=== PATIENT | male | born 1940 | race Caucasian/White ===

== ENCOUNTER 2024-01-24 07:42 | Emergency (ER) | payer OTHER ==
[~2024-01-24] VITALS: Ht 180.3 cm; Wt 68.0 kg
[2024-01-24] MEDS ORDERED: LORazepam 2 MG/ML VIAL ONE (08:04)
[2024-01-24 08:18] LABS: BASOPHILS % (AUTO) 0.1 % (0.0-2.0); EOSINOPHILS # (AUTO) 0.1 K/uL (0-0.4); EOSINOPHILS % (AUTO) 0.6 % (0.0-4.0); HEMATOCRIT 33.4 % (36-52); LYMPHOCYTES # (AUTO) 1.1 K/uL (2.0-11.5); LYMPHOCYTES % (AUTO) 12.6 % (20.5-51.1); MEAN CORPUSCULAR HEMOGLOBIN 28 pg (27-31); MEAN CORPUSCULAR HGB CONC 33 g/dL (33-37); MEAN CORPUSCULAR VOLUME 86.6 fL (80-94); MONOCYTES # (AUTO) 0.7 K/uL (0.8-1.0); MONOCYTES % (AUTO) 7.9 % (1.7-9.3); NEUTROPHILS # (AUTO) 6.8 K/uL (1.8-7.7); NEUTROPHILS % (AUTO) 78.8 % (42.2-75.2); PLATELET COUNT (AUTO) 197 K/uL (140-450); RED BLOOD CELL COUNT(AUTO) 3.86 MIL/uL (4.20-6.10); RED CELL DISTRIBUTION WIDTH 16.6 % (11.6-13.7); WHITE BLOOD COUNT (AUTO) 8.6 K/uL (4.8-10.8)
[2024-01-24 08:26] LABS: ANION GAP 11.7 (8-16); CALCIUM 8.6 mg/dL (8.5-10.1); CARBON DIOXIDE 30.4 mmol/L (21-32); CHLORIDE 99 mmol/L (98-107); CREATININE 2.2 mg/dL (0.6-1.3); GLUCOSE 187 mg/dL (74-106); POTASSIUM 4.1 mmol/L (3.5-5.1); SODIUM SERUM 137 mmol/L (136-145); UREA NITROGEN, BLOOD 56 mg/dL (7-18)
[2024-01-24 08:36] LABS: ALANINE AMINOTRANSFERASE 10 U/L (12-78); ALBUMIN 2.1 g/dL (3.4-5.0); ALKALINE PHOSPHATASE 95 U/L (50-136); ASPARTATE AMINOTRANSFERASE 18 U/L (15-37); BILIRUBIN,DIRECT 0.2 mg/dL (0.0-0.3); TOTAL BILIRUBIN 0.5 mg/dL (0.0-1.0); TOTAL PROTEIN, SERUM 8.1 g/dL (6.4-8.2)
[2024-01-24 08:38] LABS: LACTIC ACID 3.1 mmol/L (0.4-2.0)
[2024-01-24 08:39] LABS: FLU A ANTIGEN negative (NEGATIVE); FLU B ANTIGEN negative (NEGATIVE)
[2024-01-24 08:45] VITALS: BP 93/66; PULSE 69; RESP 12; TEMP 96.1; O2SAT 95
[2024-01-24 08:56] LABS: INR 1.24 (0.8-1.2); PARTIAL THROMBOPLASTIN TIME 26.1 secs (22-35.6); PROTHROMBIN TIME 12.9 secs (10.8-13.4)
[2024-01-24] MEDS: LORazepam 2 MG/ML VIAL IVP ONE (09:29)
[2024-01-24] MEDS: NACL 0.9% 1,000 ML IV ONE (09:29)
[2024-01-24 09:35] LABS: BILIRUBIN,URINE NEGATIVE (NEGATIVE); BLOOD, URINE 3+ (NEGATIVE); COLOR,URINE YELLOW (YELLOW); LEUKOCYTE ESTERASE ,URINE 1+ (NEGATIVE); NITRITE, URINE NEGATIVE (NEGATIVE); PROTEIN,URINE NEGATIVE (NEGATIVE); UGLUCOSE NEGATIVE (NEGATIVE); UROBILINOGEN,URINE 0.2 EU/dL (0.2 - 1)
[2024-01-24] MEDS ORDERED: cefTRIAXone 1,000 MG VIAL ONE (09:39)
[2024-01-24 09:40] LABS: APPEARANCE,URINE SLIGHTLY CLOUDY (CLEAR)
[2024-01-24] MEDS: cefTRIAXone 1,000 MG in DEXT 5% MINI-BAG PLUS 50 ML IV ONE (09:49)
[2024-01-24 10:20] LABS: BACTERIA,URINE FEW /HPF (None Seen); SQUAMOUS EPITHELIAL CELL,UR 0-3 (FEW) /LPF (0-3 (FEW))
[2024-01-24] MEDS: DESMOPRESSIN 4 MCG/ML AMP IV ONE (10:59)
[2024-01-24 11:01] VITALS: BP 99/50; PULSE 63; RESP 16; O2SAT 98
== END 2024-01-24 11:03 | disposition short-term general hospital (02) ==
LOC: MED 07:42
DX: S06.300A Unspecified focal traumatic brain injury without loss of consciousness, initial encounter (principal); R56.9 Unspecified convulsions; Z20.822 Contact with and (suspected) exposure to COVID-19; I48.91 Unspecified atrial fibrillation; E11.9 Type 2 diabetes mellitus without complications; K21.9 Gastro-esophageal reflux disease without esophagitis; I10 Essential (primary) hypertension; Z87.448 Personal history of other diseases of urinary system; Z95.0 Presence of cardiac pacemaker; Z88.8 Allergy status to other drugs, medicaments and biological substances; X58.XXXA Exposure to other specified factors, initial encounter; Y92.89 Other specified places as the place of occurrence of the external cause; Y93.89 Activity, other specified; Y99.8 Other external cause status
CPT/HCPCS: 36415; 70450; 70496; 70498; 71045; 80048; 80076; 81001; 83605; 83880; 84484; 85025; 85610; 85730; 86900; 86901; 87040; 87086; 87426; 87804; 93005; 96361; 96365; 96375; 99285; J0696; J2060; J2597; J7030; Q9967